=== PATIENT | female | born 1960 | race Two or more races ===

== ENCOUNTER 2022-06-24 10:52 | Inpatient (IN) | payer MEDICAID ==
[~2022-06-24] VITALS: Ht 160 cm; Wt 59.0 kg
--- NOTE | 2022-06-24 11:01 | NUR ---
BIB FAMILY PT'S DIALYSIS CATHETER MALFUNCTION,UNABLE TO GET TREATMENT TODAY. DIALYSIS ACCESS IS ON R CHEST. DR LUKE AT BEDSIDE. AWAITING MD ORDERS.
--- NOTE | 2022-06-24 11:08 | NUR ---
COVID SWAB DONE AND SENT TO LAB
--- NOTE | 2022-06-24 11:17 | NUR ---
MOVE SHEET SUBMITTED.
[2022-06-24 11:44] LABS: BASOPHILS # (AUTO) 0.1 K/uL (0.0-0.2); BASOPHILS % (AUTO) 0.8 % (0.0-2.0); EOSINOPHILS % (AUTO) 0.3 % (0.0-6.0); HEMATOCRIT 32 % (33-45); HEMOGLOBIN 10.5 g/dL (11.5-14.8); LYMPHOCYTES # (AUTO) 1.4 K/uL (0.8-4.8); LYMPHOCYTES % (AUTO) 11.1 % (20.0-44.0); MEAN CORPUSCULAR HGB CONC 33 g/dl (31.0-36.0); MEAN CORPUSCULAR VOLUME 88 fL (82-100); MONOCYTES # (AUTO) 0.4 K/uL (0.1-1.30); MONOCYTES % (AUTO) 3.1 % (2.0-12.0); NEUTROPHILS % (AUTO) 84.7 % (43.0-81.0); PLATELET COUNT (AUTO) 143 K/uL (150-450); RED BLOOD CELL COUNT(AUTO) 3.67 MIL/uL (4.0-5.2)
[2022-06-24 11:50] LABS: CREATININE 5.7 mg/dL (0.6-1.3); POTASSIUM 4.7 mmol/L (3.5-5.1)
[2022-06-24] MEDS ORDERED: THIA100T88 PO (11:55)
[2022-06-24] MEDS ORDERED: SEVE800T28 PO (11:55)
[2022-06-24] MEDS ORDERED: EPOE1VIA7 IJ (11:55)
[2022-06-24] MEDS ORDERED: PRED10TA PO (11:55)
[2022-06-24 12:37] LABS: BAND % (MANUAL) 3 % (0.0-5.0); LYMPHOCYTES % (MANUAL) 14 % (16-48); MONOCYTES % (MANUAL) 5 % (0-11.0); NEUTROPHILS % (MANUAL) 78 (42-76)
--- NOTE | 2022-06-24 13:01 | NUR ---
SPOKE WITH DR CONKLIN PT IS TO REMAIN NPO FOR CATHETER REPLACEMENT LATER THIS EVENING
[2022-06-24] MEDS ORDERED: ANESTHESIA TRAY IN PYXIS 1 EA TRAY MC ONE (13:14)
[2022-06-24] MEDS ORDERED: LIDOCAINE 1% INJ 50 ML MDV IJ ONE (13:15)
[2022-06-24] MEDS ORDERED: LIDOCAINE HCL/MPF 1% 30 ML VIAL IJ ONE (13:16)
[2022-06-24] MEDS ORDERED: IOHEXOL 0 ML IV ONE (13:16)
--- NOTE | 2022-06-24 13:21 | NUR ---
OR CALLED FOR CONSENT FOR PROCEDURE, HEMODIALYSIS CATHETER PLACEMENT.
--- NOTE | 2022-06-24 13:23 | NUR ---
[facility] BED 111-1
[2022-06-24] MEDS ORDERED: HEPARIN SODIUM, PORCINE 1,000 UNIT/ML VIAL ONE (13:27)
--- NOTE | 2022-06-24 13:30 | NUR ---
PT SIGNED CONSENT FOR HEMODIALYSIS CATHETER PLACEMENT AND PLACE WITHIN CHART.
--- NOTE | 2022-06-24 13:32 | NUR ---
PT TRASNFERRED TO OR VIA VLADIMIR
[2022-06-24] MEDS ORDERED: FENTANYL PF 100MCG/2ML AMPUL ONE (13:47)
[2022-06-24] MEDS ORDERED: MIDAZOLAM HCL 2 MG/2ML VIAL ONE (13:47)
[2022-06-24 16:00] VITALS: BP 103/59
[2022-06-24] MEDS ORDERED: ACETAMINOPHEN 325 MG TABLET PO PRN (16:00)
[2022-06-24] MEDS ORDERED: ONDANSETRON HCL/PF 4 MG/2 ML VIAL IVP PRN (16:00)
[2022-06-24] MEDS ORDERED: ZOLPIDEM TARTRATE 5 MG TABLET PO PRN (16:00)
[2022-06-24] MEDS ORDERED: MAGNESIUM HYDROXIDE 30 ML UDC PO PRN (16:00)
[2022-06-24] MEDS ORDERED: Z GUARD REMEDY 4 OZ OINT TP PRN (16:00)
[2022-06-24] MEDS ORDERED: MAG HYDROX/AL HYDROX/SIMETH 30 ML UDC PO PRN (16:00)
--- NOTE | 2022-06-24 16:00 | NUR ---
RN NOTE PATIENT IS FULL CODE STATUS.
--- NOTE | 2022-06-24 16:00 | NUR ---
RN NOTES PATIENT'S BROTHER TERRANCE CELL PHONE NUMBER: CALL IF NEEDED.
--- NOTE | 2022-06-24 19:00 | NUR ---
RN CLOSING NOTES RECEIVED PATIENT FROM ER. A/O X4. MALTESE SPEAKING. DIALYSIS PATIENT. RIGHT WRIST 20 G INTACT AND FLUSHING. PATIENT IS AMBULATORY WITH SLICING MACHINE FEEDER ON ROOM AIR. ALL SAFETY MEASURES IN PLACE. BED IN LOWEST POSITION CALL LIGHT WITHIN REACH, BED ALARM ON. WILL ENDORSE THE PATIENT TO THE WIRELESS ENGINEER.
--- NOTE | 2022-06-24 19:30 | NUR ---
RN NOTES RECEIVED PT FOR CONTINUITY OF CARE. PATIENT A/OX4; LATVIAN SPEAKING; IN NO S/SX OF ACUTE DISTRESS AT THIS TIME; CURRENTLY ON ROOM AIR ; WITH 02 SAT >95% AT THIS TIME. WITH IV ACCESS ON R WIST #20 PATENT, INTACT AND FLUSHING WELL. HD ACCESS ON R IJ, INTACT. WILL ENSURE SAFETY MEASURES WITHIN THE SHIFT. PATIENT BED ALARM IS ON. HEAD OF BED ELEVATED. BED IS LOCKED, IN LOWEST POSITION AND SIDE RAILS UP. CALL LIGHT WITHIN REACH OF THE PATIENT. WILL CONTINUE TO MONITOR AND REASSESS FOR ANY CHANGES AND WILL CARRY OUT ANY ONGOING AND ACTIVE MD ORDER.
[2022-06-24 20:00] VITALS: BP 96/47
[2022-06-25 04:00] VITALS: BP 105/59
--- NOTE | 2022-06-25 06:22 | NUR ---
RN CLOSING NOTE: PATIENT REMAINS IN ROOM IN NO SIGNS OF RESPIRATORY DISTRESS, PATIENT STILL ON ROOM AIR;TOLERATING WELL SATURATING @ >95% SP02. PLAN: FOR HD TODAY; CONSENT IN THE CHART. SAFETY MEASURES IMPLEMENTED, BED IN LOWEST POSITION, LOCKED, SIDE RAILS UP, CALL LIGHT WITHIN REACH. ALL NEEDS AND ORDERS ADDRESSED DURING THE SHIFT. IV ACCESS MAINTAINED INTACT, SECURED AND FLUSHING WELL. PATIENT KEPT CLEAN AND COMFORTABLE WITHIN THE SHIFT. PATIENT ENDORSED TO INCOMING SHIFT RN WITH STABLE VITAL SIGN AND FOR CONTINUITY OF CARE.
[2022-06-25 06:35] LABS: BASOPHILS # (AUTO) 0.2 K/uL (0.0-0.2); BASOPHILS % (AUTO) 1.6 % (0.0-2.0); EOSINOPHILS % (AUTO) 1.2 % (0.0-6.0); HEMATOCRIT 32 % (33-45); HEMOGLOBIN 10.3 g/dL (11.5-14.8); LYMPHOCYTES # (AUTO) 1.7 K/uL (0.8-4.8); LYMPHOCYTES % (AUTO) 17.7 % (20.0-44.0); MEAN CORPUSCULAR HGB CONC 33 g/dl (31.0-36.0); MEAN CORPUSCULAR VOLUME 89 fL (82-100); MONOCYTES # (AUTO) 0.6 K/uL (0.1-1.30); MONOCYTES % (AUTO) 6.4 % (2.0-12.0); NEUTROPHILS # (AUTO) 7.1 K/uL (1.8-8.9); NEUTROPHILS % (AUTO) 73.1 % (43.0-81.0); PLATELET COUNT (AUTO) 149 K/uL (150-450); RED BLOOD CELL COUNT(AUTO) 3.53 MIL/uL (4.0-5.2); WHITE BLOOD COUNT (AUTO) 9.8 K/uL (4.3-11.0)
[2022-06-25 06:56] LABS: CALCIUM, SERUM 9.1 mg/dL (8.5-10.1); MAGNESIUM 2.6 mg/dL (1.8-2.4); PHOSPHORUS 6.4 mg/dL (2.5-4.9); POTASSIUM 4.5 mmol/L (3.5-5.1)
--- NOTE | 2022-06-25 07:30 | NUR ---
RN OPENING NOTE PATIENT AWAKE IN BED, A/O X4 MORNING MEDICATION GIVEN. NO S/S OF DISTRESS. PATIENT IS COOPERATIVE. BED AT LOWEST POSITION, CALL LIGHT WITHIN REACH, WILL MONITOR THE PATIENT T/O THE DAY FOR JARED.
[2022-06-25] MEDS: PANTOPRAZOLE 40 MG TABLET.DR PO SCH (07:34)
[2022-06-25 08:00] VITALS: BP 115/67
[2022-06-25 12:00] VITALS: BP 105/71
[2022-06-25 16:00] VITALS: BP 99/77
--- NOTE | 2022-06-25 18:45 | NUR ---
RN CLOSING NOTE PATIENT IN BED WATCHING TV. A/O X4. [place] SPEAKING. DIALYSIS PATIENT. RIGHT WRIST 20 G INTACT AND FLUSHING. PATIENT IS AMBULATORY WITH STRIP FEEDER ON ROOM AIR. DIALYSIS TODAY AT 1300 OUTPUT WAS 1800 ML. PATIENT RIGHT UPPER HD CATH WHICH WAS PLACED YESTERDAY IN THE ER. DIALYSIS NURSE REPORTED DID NOT FUNCTION WELL TODAY, HER SURGEON WILL SEE HER TOMORROW FOR FURTHER ASSESSMENT. ALL SAFETY MEASURES IN PLACE. BED IN LOWEST POSITION CALL LIGHT WITHIN REACH, BED ALARM ON. WILL ENDORSE THE PATIENT TO THE SOAPSTONER.
--- NOTE | 2022-06-25 19:35 | NUR ---
RN NOTES RECEIVED PT FOR CONTINUITY OF CARE. PATIENT A/OX4; KYRGY[place] SPEAKING; IN NO S/SX OF ACUTE DISTRESS AT THIS TIME; CURRENTLY ON ROOM AIR ; WITH 02 SAT >95% AT THIS TIME. WITH IV ACCESS ON R WIST #20 PATENT, INTACT AND FLUSHING WELL. HD ACCESS ON R IJ, INTACT. S/P HD TODAY OUTPUT 1800. WILL ENSURE SAFETY MEASURES WITHIN THE SHIFT. PATIENT BED ALARM IS ON. HEAD OF BED ELEVATED. BED IS LOCKED, IN LOWEST POSITION AND SIDE RAILS UP. CALL LIGHT WITHIN REACH OF THE PATIENT. WILL CONTINUE TO MONITOR AND REASSESS FOR ANY CHANGES AND WILL CARRY OUT ANY ONGOING AND ACTIVE MD ORDER.
[2022-06-25 20:00] VITALS: BP 96/60
[2022-06-26 04:00] VITALS: BP 92/59
[2022-06-26 06:24] LABS: BASOPHILS # (AUTO) 0.2 K/uL (0.0-0.2); BASOPHILS % (AUTO) 1.7 % (0.0-2.0); EOSINOPHILS % (AUTO) 1.2 % (0.0-6.0); HEMATOCRIT 33 % (33-45); HEMOGLOBIN 10.9 g/dL (11.5-14.8); LYMPHOCYTES # (AUTO) 1.7 K/uL (0.8-4.8); MEAN CORPUSCULAR HGB CONC 33 g/dl (31.0-36.0); MEAN CORPUSCULAR VOLUME 87 fL (82-100); MONOCYTES # (AUTO) 0.6 K/uL (0.1-1.30); MONOCYTES % (AUTO) 6.1 % (2.0-12.0); NEUTROPHILS # (AUTO) 6.7 K/uL (1.8-8.9); PLATELET COUNT (AUTO) 150 K/uL (150-450); RED BLOOD CELL COUNT(AUTO) 3.75 MIL/uL (4.0-5.2); WHITE BLOOD COUNT (AUTO) 9.2 K/uL (4.3-11.0)
--- NOTE | 2022-06-26 06:44 | NUR ---
RN CLOSING NOTE: PATIENT REMAINS IN ROOM IN NO SIGNS OF RESPIRATORY DISTRESS, PATIENT STILL ON ROOM AIR; TOLERATING WELL SATURATING @ >95% SP02. PLAN: FOR NEW HD ACCESS PLACEMENT. SAFETY MEASURES IMPLEMENTED, BED IN LOWEST POSITION, LOCKED, SIDE RAILS UP, CALL LIGHT WITHIN REACH. ALL NEEDS AND ORDERS ADDRESSED DURING THE SHIFT. IV ACCESS MAINTAINED INTACT, SECURED AND FLUSHING WELL. PATIENT KEPT CLEAN AND COMFORTABLE WITHIN THE SHIFT. PATIENT ENDORSED TO INCOMING SHIFT RN WITH STABLE VITAL SIGN AND FOR CONTINUITY OF CARE.
[2022-06-26 06:54] LABS: CALCIUM, SERUM 9.2 mg/dL (8.5-10.1); CREATININE 4.9 mg/dL (0.6-1.3); MAGNESIUM 2.2 mg/dL (1.8-2.4); PHOSPHORUS 5.9 mg/dL (2.5-4.9); POTASSIUM 4.3 mmol/L (3.5-5.1)
--- NOTE | 2022-06-26 07:30 | NUR ---
MS KAY AM NOTES RECEIVED PT IN BED, A/OX4; SWEDISH SPEAKING; NO S/SX OF ACUTE DISTRESS AT THIS TIME; CURRENTLY ON ROOM AIR ; WITH 02 SAT >96%, DENIES PAIN, WITH IV ACCESS ON R WRIST #20 PATENT, INTACT AND FLUSHING WELL. HD ACCESS ON R IJ, INTACT. ON RENAL DIET. AMBULATORY BRP. DISCUSSED POC, VERBALIZED UNDERSTANDING. BED ALARM IS ON. HEAD OF BED ELEVATED. BED IS LOCKED, IN LOWEST POSITION AND SIDE RAILS UP. CALL LIGHT WITHIN REACH OF THE PATIENT. WILL CONTINUE TO MONITOR AND REASSESS FOR ANY CHANGES AND WILL CARRY OUT ANY ONGOING AND ACTIVE MD ORDER.
[2022-06-26] MEDS: SEVELAMER CARBONATE 800 MG TABLET PO SCH ×3 (07:44→17:01)
[2022-06-26] MEDS: PANTOPRAZOLE 40 MG TABLET.DR PO SCH (07:44)
[2022-06-26 08:00] VITALS: BP 92/54
[2022-06-26] MEDS: predniSONE 20 MG TABLET PO SCH (08:08)
[2022-06-26] MEDS: THIAMINE HCL 100 MG TABLET PO SCH (08:09)
--- NOTE | 2022-06-26 09:30 | NUR ---
RN NOTES DUE MEDS GIVEN
--- NOTE | 2022-06-26 12:12 | NUR ---
RN NOTES RECEIVED A CALL FROM DR. CONKLIN. GET CONSENT FOR HD CATH PLACEMENT TOMORROW, NPO POST MIDNIGHT AND BMP IN AM
[2022-06-26 16:00] VITALS: BP 106/68
--- NOTE | 2022-06-26 18:32 | NUR ---
MS RN AM NOTES RECEIVED PT IN BED, A/OX4; SWAZI SPEAKING; NO S/SX OF ACUTE DISTRESS AT THIS TIME; CURRENTLY ON ROOM AIR ; WITH 02 SAT >96%, DENIES PAIN, WITH IV ACCESS ON R WRIST #20 PATENT, INTACT AND FLUSHING WELL. HD ACCESS ON R IJ, INTACT. ON RENAL DIET. AMBULATORY BRP. DISCUSSED POC, VERBALIZED UNDERSTANDING. BED ALARM IS ON. HEAD OF BED ELEVATED. BED IS LOCKED, IN LOWEST POSITION AND SIDE RAILS UP. CALL LIGHT WITHIN REACH OF THE PATIENT. ALL NEEDS MET AT THIS TIME. WILL ENDORSE TO NEXT SHIFT FOR JARED FOR HD REPLACEMENT TOMORROW AT 0730 C/O DR. RUBIN HERMOSILLO POST MIDNIGHT.
--- NOTE | 2022-06-26 19:30 | NUR ---
RN OPENING NOTE PATIENT IN BED, AWAKE, SITING AT THE CHAIR AT BEDSIDE. FAMILY PRESENT IN THE ROOM. PATIENT IS CURRENTLY ON RA, TOLERATING WELL. BREATHING EVEN AND UNLABORED. PATIENT DOES NOT REPORT ANY PAIN AT THIS TIME. PATIENT NOTED TO HAVE A R IJ HD ACCESS AND A R WRIST 20 G SALINE LOCKED AT THIS TIME. PATIENT DOES NTO REPORT ANY PAIN OR DISCOMFORT. PATIENT TO BE NPO AFTER MN. SAFETY MEASURES IN PLACE: BED LOCKED AND IN LOWEST POSITION, CALL LIGHT WITHIN REACH, SIDE RAILS UP. WILL MONITOR PATIENT CLOSELY.
[2022-06-26 20:00] VITALS: BP 104/64
--- NOTE | 2022-06-26 21:50 | NUR ---
OBTAINED CONSENTS FOR ANESTHESIA AND BLOOD TRANSFUSION, SIGNED BY PATIENT.
[2022-06-27 04:00] VITALS: BP 113/65
[2022-06-27 06:12] LABS: BASOPHILS # (AUTO) 0.1 K/uL (0.0-0.2); BASOPHILS % (AUTO) 1.2 % (0.0-2.0); EOSINOPHILS % (AUTO) 1.2 % (0.0-6.0); HEMATOCRIT 32 % (33-45); HEMOGLOBIN 10.5 g/dL (11.5-14.8); LYMPHOCYTES # (AUTO) 1.7 K/uL (0.8-4.8); LYMPHOCYTES % (AUTO) 13.2 % (20.0-44.0); MEAN CORPUSCULAR HGB CONC 33 g/dl (31.0-36.0); MEAN CORPUSCULAR VOLUME 87 fL (82-100); MONOCYTES # (AUTO) 0.6 K/uL (0.1-1.30); MONOCYTES % (AUTO) 4.8 % (2.0-12.0); NEUTROPHILS # (AUTO) 10.1 K/uL (1.8-8.9); NEUTROPHILS % (AUTO) 79.6 % (43.0-81.0); PLATELET COUNT (AUTO) 176 K/uL (150-450); RED BLOOD CELL COUNT(AUTO) 3.63 MIL/uL (4.0-5.2); WHITE BLOOD COUNT (AUTO) 12.6 K/uL (4.3-11.0)
[2022-06-27] MEDS ORDERED: DEXAMETHASONE SOD PHOSPHATE 10 MG/ML VIAL ONE (06:52)
--- NOTE | 2022-06-27 06:58 | NUR ---
RN CLOSING NOTE PATIENT IN BED, EYES CLOSED, EASILY AWAKENED. PATIENT ABLE TO MAKE NEEDS KNOWN, PRIMARILY OCCITAN SPEAKER. PATIENT IS CURRENTLY ON RA, TOLERATING WELL. BREATHING EVEN AND UNLABORED. PATIENT DOES NOT REPORT ANY PAIN DURING THE SHIFT. PATIENT HAS A R IJ HD ACCESS AND A R WRIST 20 G SALINE LOCKED. NPO STATUS MAINTAINED FOR HD CATH PLACEMENT. SAFETY MEASURES IN PLACE: BED LOCKED AND IN LOWEST POSITION, CALL LIGHT WITHIN REACH, SIDE RAILS UP. ALL NEEDS MET AND ATTENDED. ALL ORDERS CARRIED OUT. WILL ENDORSE TO DAY SHIFT NURSE FOR JARED.
[2022-06-27] MEDS ORDERED: ANESTHESIA TRAY IN PYXIS 1 EA TRAY MC ONE ×2 (07:03→08:36)
--- NOTE | 2022-06-27 07:05 | NUR ---
PATIENT WITH OR NURSES NOW TO BE TAKEN TO OR FOR HD CATH PLACEMENT. PATIENT NOT IN ANY APPARENT DISTRESS. READY FOR TRANSPORT.
[2022-06-27] MEDS ORDERED: HEPARIN SODIUM, PORCINE 1,000 UNIT/ML VIAL ONE ×2 (07:06→07:08)
[2022-06-27] MEDS ORDERED: IOHEXOL 50 ML IV ONE (07:08)
[2022-06-27] MEDS ORDERED: LIDOCAINE 1% INJ 50 ML MDV IJ ONE (07:09)
[2022-06-27 07:10] LABS: CALCIUM, SERUM 9.3 mg/dL (8.5-10.1); CREATININE 6.1 mg/dL (0.6-1.3); MAGNESIUM 2.4 mg/dL (1.8-2.4); PHOSPHORUS 6.5 mg/dL (2.5-4.9); POTASSIUM 3.7 mmol/L (3.5-5.1)
[2022-06-27] MEDS ORDERED: LIDOCAINE HCL/PF 1% 30 ML SDV ONE (07:10)
[2022-06-27] MEDS ORDERED: LIDOCAINE HCL/MPF 1% 30 ML VIAL IJ ONE (07:10)
--- NOTE | 2022-06-27 07:10 | NUR ---
patient left for hd cath placement.
[2022-06-27] MEDS: PANTOPRAZOLE 40 MG TABLET.DR PO SCH (07:30)
--- NOTE | 2022-06-27 08:00 | NUR ---
RN OPENING NOTE RECEIVED PATIENT BACK FROM SURGERY.PATIENT IN BED, AWAKE,ALERT AND ORIENTED X4. PATIENT IS LUX[place]OURG[place] SPEAKING. PATIENT IS CURRENTLY ON RA, TOLERATING WELL TOLERATING ABOVE 97%. PATIENT HAS NEW RIGHT TO IJ HD ACCESS AND A R WRIST 20 G SALINE LOCKED. PATIENT SHOWS NO SIGNS OF PAIN OR DISCOMFORT. PATIENT CAN RESUME ALL ORDERS. ALL SAFETY MEASURES IN PLACE: BED LOCKED AND IN LOWEST POSITION, CALL LIGHT WITHIN REACH, SIDE RAILS UP X2.
[2022-06-27 08:30] VITALS: BP 109/71
[2022-06-27] MEDS ORDERED: MEPERIDINE25 MG SYR 25 MG/ML VIAL ONE (08:49)
[2022-06-27] MEDS: THIAMINE HCL 100 MG TABLET PO SCH (10:07)
[2022-06-27] MEDS: SEVELAMER CARBONATE 800 MG TABLET PO SCH ×3 (10:07→18:00)
[2022-06-27] MEDS: predniSONE 20 MG TABLET PO SCH (10:07)
[2022-06-27 12:00] VITALS: BP 91/60
--- NOTE | 2022-06-27 14:00 | NUR ---
patient getting dialysis
[2022-06-27 14:51] VITALS: BP 79/50
[2022-06-27] MEDS ORDERED: MIDODRINE HCL (5MG) 5 MG TABLET PO PRN (15:00)
[2022-06-27] MEDS ORDERED: ANCEF 1 GM/50 ML D5W IV SCH ×2 (16:00)
--- NOTE | 2022-06-27 17:00 | NUR ---
rn note patient received dialysis. drained 500
--- NOTE | 2022-06-27 18:55 | NUR ---
patient discharged to home removed iv. provided discharge instructions. patient verbalized understanding. family picked up patient. stable vital signs.belongings and medications returned
[2022-06-27 19:36] LABS: BAND % (MANUAL) 4 % (0.0-5.0); EOSINOPHILS % (MANUAL) 1 % (0-4); LYMPHOCYTES % (MANUAL) 12 % (16-48); MONOCYTES % (MANUAL) 4 % (0-11.0); NEUTROPHILS % (MANUAL) 79 (42-76)
== END 2022-06-27 22:42 | disposition home or self-care (01) | DRG 466 ==
LOC: ER 11:01 → MEDSG1 13:34
PROVIDERS: ADMIT Student in an Organized Health Care Education/Training Program; ATTEND Student in an Organized Health Care Education/Training Program
PROC: 05PY33Z Removal of Infusion Device from Upper Vein, Percutaneous Approach (ICD-10-PCS; 2022-06-24)
PROC: 05HM33Z Insertion of Infusion Device into Right Internal Jugular Vein, Percutaneous Approach (ICD-10-PCS; 2022-06-24)
PROC: 0JH63XZ Insertion of Tunneled Vascular Access Device into Chest Subcutaneous Tissue and Fascia, Percutaneous Approach (ICD-10-PCS; 2022-06-24)
PROC: B513YZA Fluoroscopy of Right Jugular Veins using Other Contrast, Guidance (ICD-10-PCS; 2022-06-24)
PROC: 5A1D70Z Performance of Urinary Filtration, Intermittent, Less than 6 Hours Per Day (ICD-10-PCS; principal; 2022-06-25)
PROC: 0J2SXYZ Change Other Device in Head and Neck Subcutaneous Tissue and Fascia, External Approach (ICD-10-PCS; 2022-06-27)
PROC: B518YZZ Fluoroscopy of Superior Vena Cava using Other Contrast (ICD-10-PCS; 2022-06-27)
DX: T82.41XA Breakdown (mechanical) of vascular dialysis catheter, initial encounter (principal); N18.6 End stage renal disease; D69.6 Thrombocytopenia, unspecified; E87.1 Hypo-osmolality and hyponatremia; D63.8 Anemia in other chronic diseases classified elsewhere; Z99.2 Dependence on renal dialysis; Y71.2 Prosthetic and other implants, materials and accessory cardiovascular devices associated with adverse incidents; Y92.009 Unspecified place in unspecified non-institutional (private) residence as the place of occurrence of the external cause; Z20.822 Contact with and (suspected) exposure to COVID-19; Z79.899 Other long term (current) drug therapy; D72.829 Elevated white blood cell count, unspecified; M89.8X9 Other specified disorders of bone, unspecified site
CPT/HCPCS: 36415; 71045-TC; 80048-TC; 83735-TC; 84100-TC; 85025-TC; 85730-TC; 86706; 86850-TC; 87340; 90935-TC; C1750; C1757; C1769; C1894; C9803; G0378; J0690; J1100; J1644; J2175; J2250; J2704; J3010; J3490; J7030; J7060; Q9967